=== PATIENT | female | born 2000 | race Caucasian/White ===

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

== ENCOUNTER 2023-04-24 01:27 | Emergency (ER) | payer OTHER ==
[~2023-04-24] VITALS: Ht 162.6 cm; Wt 81.7 kg
[~2023-04-24 01:27] MED LIST changes: +HYDR1TAB94 PO; +IBUP400 PO; +ONDA4ODT SL
[2023-04-24 01:40] VITALS: BP 117/71
[2023-04-24] MEDS ORDERED: ONDA4ODT MM (02:26)
[2023-04-24] MEDS ORDERED: AMOCLA875 PO (02:26)
== END 2023-04-24 02:37 | disposition home or self-care (01) ==
LOC: ER 01:27
DX: K04.7 Periapical abscess without sinus (principal); R11.2 Nausea with vomiting, unspecified
CPT/HCPCS: 96372; 99282-25; A9270; J1885

== ENCOUNTER → 2023-05-28 | Outpatient (CLI) | payer OTHER ==
[~2023-05-28] MED LIST changes: +AMOCLA875 PO; +ONDA4ODT MM
== END ==
LOC: LAB 12:34 → LAB SHORT 12:34
DX: R30.0 Dysuria (principal); N89.8 Other specified noninflammatory disorders of vagina; R31.9 Hematuria, unspecified
CPT/HCPCS: 87070; 87086; 87205

== ENCOUNTER → 2023-08-17 | Outpatient (CLI) | payer OTHER ==
[2023-08-17 20:01] LABS: Source, Urine Clean Catch
[2023-08-17 20:25] LABS: Appearance, Urine Hazy (Clear); Bilirubin, Urine Neg (Neg); Blood, Urine Neg (Neg); Color, Urine Yellow (P-Yellow); Glucose Qualitative, Urine Neg (Neg); Ketones, Urine Neg (Neg); Leukocyte Esterase, Urine 1+ (Neg); Nitrite, Urine Neg (Neg); Protein, Urine Neg (Neg); Specific Gravity, Urine 1.015 (1.003-1.022); Urobilinogen, Urine NORM (Normal)
[2023-08-17 20:53] LABS: Bacteria Mod /hpf; Red Blood Cells, Urine Not Seen /hpf (0-2); Squamous Epithelial Cells Few /hpf (Few)
[2023-08-18 09:56] LABS: Candida species (DNA Probe) Negative (NEGATIVE); G. vaginalis (DNA Probe) Negative (NEGATIVE); T. vaginalis (DNA Probe) Negative (NEGATIVE)
== END ==
LOC: LAB 14:30 → LAB SHORT 14:30
PROVIDERS: Registered Nurse Community Health
DX: Z34.90 Encounter for supervision of normal pregnancy, unspecified, unspecified trimester (principal)
CPT/HCPCS: 81001; 87086; 87480; 87510; 87660

== ENCOUNTER → 2023-09-25 | Outpatient (CLI) | payer OTHER ==
[2023-09-25 15:56] LABS: BASOPHILS ABSOLUTE AUTO 0.02 K/mm3 (0.00-0.23); BASOPHILS PERCENT AUTO 0 % (0-2); EOSINOPHILS ABSOLUTE AUTO 0.01 K/mm3 (0.00-0.68); EOSINOPHILS PERCENT AUTO 0 % (0-6); Hematocrit 38.2 % (33.0-51.0); Hemoglobin 13.4 g/dL (11.5-16.0); IMMATURE GRAN ABSOLUTE AUTO 0.02 K/mm3 (0.00-0.10); IMMATURE GRAN PERCENT AUTO 0 % (0-1); LYMPHOCYTES ABSOLUTE AUTO 1.19 K/mm3 (0.84-5.20); LYMPHOCYTES PERCENT AUTO 18 % (21-46); MONOCYTES ABSOLUTE AUTO 0.33 K/mm3 (0.16-1.47); MONOCYTES PERCENT AUTO 5 % (4-13); Mean Corpuscular HGB Conc 35.1 g/dL (31.5-36.5); Mean Corpuscular Volume 86 fL (80-100); Mean Platelet Volume 11.2 fL (9.1-12.4); NEUTROPHILS PERCENT AUTO 76 % (41-73); Platelet Count 211 K/mm3 (150-400); RDW Coefficient Variation 12.3 % (11.7-14.2); RDW Standard Deviation 38.2 fL (35.1-46.3); Red Blood Cell Count 4.46 M/mm3 (3.80-5.20); White Blood Cell Count 6.57 K/mm3 (4.00-11.30)
[2023-09-27 09:05] LABS: HIV 1,2 COMBO ANTIGEN/ANTIBODY Negative (Negative)
[2023-09-27 11:18] LABS: HEPATITIS C AB CIA INTERP Negative (Negative); HEPATITIS C ANTIBODY CIA INDEX 0.09 IV
[2023-09-28 11:54] LABS: APTIMA MEDIA TYPE Urine; C. TRACHOMATIS BY TMA Negative (Negative); N. GONORRHOEAE BY TMA Negative (Negative); SPECIMEN SOURCE Urine
== END ==
LOC: LAB 12:51 → LAB SHORT 12:51
PROVIDERS: Registered Nurse Community Health
DX: Z34.81 Encounter for supervision of other normal pregnancy, first trimester (principal); N89.8 Other specified noninflammatory disorders of vagina
CPT/HCPCS: 85025; 86803; 86850; 87389; 87491; 87591

== ENCOUNTER → 2024-02-04 | Outpatient (CLI) | payer OTHER ==
[~2024-02-04] MED LIST changes: +PANTOPRAZOLE SO40 M2 PO
== END ==
LOC: LAB SHORT 14:27 → LAB 14:27
DX: Z34.93 Encounter for supervision of normal pregnancy, unspecified, third trimester (principal); R30.9 Painful micturition, unspecified; R31.9 Hematuria, unspecified
CPT/HCPCS: 87077; 87086; 87186

== ENCOUNTER → 2024-03-05 | Outpatient (CLI) | payer OTHER ==
[2024-03-05 19:19] LABS: Appearance, Urine Cloudy (Clear); Bilirubin, Urine Neg (Neg); Blood, Urine Neg (Neg); Color, Urine Yellow (P-Yellow); Glucose Qualitative, Urine Neg (Neg); Ketones, Urine Neg (Neg); Leukocyte Esterase, Urine 3+ (Neg); Nitrite, Urine Pos (Neg); Protein, Urine 1+ (Neg); Specific Gravity, Urine 1.015 (1.003-1.022); Urobilinogen, Urine 2+ (Normal)
[2024-03-05 19:33] LABS: Bacteria Many /hpf; Red Blood Cells, Urine 0-2 /hpf (0-2); Squamous Epithelial Cells Many /hpf (Few); White Blood Cells, Urine 25-50 /hpf (0-5)
[2024-03-05 19:34] LABS: Calcium Oxalate Crystals Rare /hpf
== END ==
LOC: LAB SHORT 17:29 → LAB 17:29
PROVIDERS: Registered Nurse Community Health
DX: Z34.93 Encounter for supervision of normal pregnancy, unspecified, third trimester (principal)
CPT/HCPCS: 81001; 87077; 87086; 87186

== ENCOUNTER → 2024-03-13 | Outpatient (CLI) | payer OTHER | LOC: LAB 13:01 → LAB SHORT 13:01 | DX: Z34.93 Encounter for supervision of normal pregnancy, unspecified, third trimester (principal) | CPT/HCPCS: 87081; 87150 ==

== ENCOUNTER → 2024-04-02 | Outpatient (CLI) | payer OTHER ==
[~2024-04-02] MED LIST changes: +PROTONIX4010 PO
== END ==
LOC: LAB 18:13 → LAB SHORT 18:13
DX: N89.8 Other specified noninflammatory disorders of vagina (principal)
CPT/HCPCS: 87070; 87205

== ENCOUNTER 2025-02-26 00:42 | Emergency (ER) | payer OTHER ==
[~2025-02-26] VITALS: Ht 162.6 cm; Wt 95.2 kg
[~2025-02-26 00:42] MED LIST changes: +BISA5EC PO; +METAMUCIL POWD575 GM PO
[2025-02-26 01:17] VITALS: BP 123/88
[2025-02-26 01:37] LABS: Source, Urine Clean Catch
[2025-02-26 01:41] LABS: Bilirubin, Urine Neg (Neg); Color, Urine Yellow (P-Yellow); Glucose Qualitative, Urine Neg (Neg); Ketones, Urine Neg (Neg); Leukocyte Esterase, Urine 2+ (Neg); Protein, Urine 1+ (Neg); Specific Gravity, Urine 1.030 (1.003-1.022); Urobilinogen, Urine 1+ (Normal)
[2025-02-26 01:52] LABS: Red Blood Cells, Urine 0-2 /hpf (0-2)
[2025-02-26 02:20] LABS: BASOPHILS ABSOLUTE AUTO 0.02 K/mm3 (0.00-0.23); BASOPHILS PERCENT AUTO 0 % (0-2); EOSINOPHILS ABSOLUTE AUTO 0.02 K/mm3 (0.00-0.68); EOSINOPHILS PERCENT AUTO 0 % (0-6); Hematocrit 41.0 % (33.0-51.0); Hemoglobin 13.3 g/dL (11.5-16.0); IMMATURE GRAN ABSOLUTE AUTO 0.03 K/mm3 (0.00-0.10); IMMATURE GRAN PERCENT AUTO 0 % (0-1); LYMPHOCYTES ABSOLUTE AUTO 0.68 K/mm3 (0.84-5.20); LYMPHOCYTES PERCENT AUTO 6 % (21-46); MONOCYTES ABSOLUTE AUTO 0.51 K/mm3 (0.16-1.47); MONOCYTES PERCENT AUTO 5 % (4-13); Mean Corpuscular HGB Conc 32.4 g/dL (31.5-36.5); Mean Corpuscular Volume 84 fL (80-100); NEUTROPHILS ABSOLUTE AUTO 9.53 K/mm3 (1.96-9.15); NEUTROPHILS PERCENT AUTO 88 % (41-73); NRBC ABSOLUTE 0.00 K/mm3 (0.00-0.02); NRBC Auto 0.0 /100 WBC (0.0-0.2); Platelet Count 242 K/mm3 (150-400); RDW Coefficient Variation 13.4 % (11.7-14.2); RDW Standard Deviation 41.2 fL (35.1-46.3)
[2025-02-26 02:21] LABS: Alanine Aminotransfer (ALT/SGP 15.0 U/L (12-78); Albumin, Blood 3.9 g/dL (3.4-5.0); Albumin/Globulin Ratio 1.0 (0.8-1.8); Anion Gap 7.0 mmol/L (3-11); Aspartate Aminotrans (AST/SGOT 14.0 U/L (12-37); Bilirubin, Total 0.4 mg/dL (0.1-1.0); Blood Urea Nitrogen 11.0 mg/dL (8-24); CO2, Blood 25.0 mmol/L (21-32); Calcium, Blood 8.6 mg/dL (8.5-10.1); Chloride, Blood 111.0 mmol/L (98-108); Creatinine, Blood 0.91 mg/dL (0.40-1.00); Globulin, Blood 3.8 g/dL (2.2-4.0); Glucose, Blood 103.0 mg/dL (70-99); Potassium, Blood 4.0 mmol/L (3.5-5.5); Sodium, Blood 139.0 mmol/L (136-145); Total Protein, Blood 7.7 g/dL (6.4-8.2)
[2025-02-26] MEDS ORDERED: NS 1,000 ML IV SCH (02:45)
[2025-02-26] MEDS ORDERED: Ondansetron HCl 2 MG / ML 2ML Vial IV ONE (02:45)
[2025-02-26] MEDS ORDERED: RX Prepack 2 Tabs Ondansetron ODT 4MG UD ONE (03:05)
[2025-02-26] MEDS ORDERED: Ketorolac Tromethamine 30mg Vial IV ONE (03:05)
[2025-02-26] MEDS ORDERED: ONDA4ODT MM (03:07)
[2025-02-26] MEDS ORDERED: LOPE2C PO (03:07)
== END 2025-02-26 03:47 | disposition home or self-care (01) ==
LOC: ER 00:42
PROVIDERS: Emergency Medicine
DX: R11.2 Nausea with vomiting, unspecified (principal); R19.7 Diarrhea, unspecified; K21.9 Gastro-esophageal reflux disease without esophagitis; Z79.899 Other long term (current) drug therapy
CPT/HCPCS: 80053; 81001; 83690; 84703; 85025; 87086; 96361; 96374; 96375; 99283; 99284-25; A9270; J1885; J2405; J7030